=== PATIENT | female | born 1970 | race Caucasian/White ===

== ENCOUNTER 2024-08-18 13:21 | Observation (INO) | payer MEDICARE, OTHER ==
--- NOTE | 2024-08-18 13:33 | ED ---
Chest Pain HPI - General Source: patient, RN notes reviewed, old records reviewed Mode of arrival: ambulatory Limitations: no limitations <Susan Waddell - Last Filed: 08/18/24 13:32> <Rasheed Palomino - Last Filed: 08/18/24 15:31> - General Stated Complaint: Abn Labs Time Seen by Provider: 08/18/24 13:32 - History of Present Illness Initial Comments: Quick note: 54 old female presenting to the ER for evaluation of abnormal stress test. Patient underwent stress test yesterday that was ordered by PCP. Patient was informed last night she had an abnormal result and was instructed to come to the ER. Paperwork patient brought or showing exercise-induced ischemic changes. Patient states since yesterday she has had a heavy sensation to her chest along with shortness of breath. No known cardiac history. Patient also was endorsing a headache. (Susan Waddell) This is a 54-year-old female with a past medical history significant for diabetes patient states she recently had a stress test and stress test was positive so she got a phone call from her primary medical care doctor to come to the emergency department immediately. Patient states she has had some intermittent chest heaviness on the left side but she does not have any currently. Patient denies any shortness of breath. Patient Nuys any palpita tions. Patient Nuys any nausea vomiting or diaphoretic episode. Patient denies any recent fever chills or cough or patient has any swelling to the legs or calf tenderness. (Rasheed Palomino) - Related Data Allergies Allergy/AdvReac Type Severity Reaction Status Date / Time erythromycin base Allergy Rash/Hives Verified 08/18/24 13:35 Penicillins Allergy Rash/Hives Verified 08/18/24 13:33 Tetracyclines Allergy Rash/Hives Verified 08/18/24 13:33 Review of Systems ROS Other: All systems not noted in ROS Statement are negative. <Susan Waddell - Last Filed: 08/18/24 13:32> ROS Other: All systems not noted in ROS Statement are negative. <Rasheed Palomino - Last Filed: 08/18/24 15:31> ROS Statement: Those systems with pertinent positive or pertinent negative responses have been documented in the HPI. General Exam <Susan Waddell - Last Filed: 08/18/24 13:32> <Rasheed Palomino - Last Filed: 08/18/24 15:31> - General Exam Comments Initial Comments: Visual Physical Exam Vital signs reviewed General: Well-appearing, nontoxic, no acute distress. Head: Normocephalic, atraumatic Eyes: PERRLA, EOMI ENT: Airway patent Chest: Nonlabored breathing Skin: No visual rash, normal skin tone Neuro: Alert and oriented 3 Musculoskeletal: No gross abnormalities (Susan Waddell) GENERAL: Patient is well-developed and well-nourished. Patient is nontoxic and well- hydrated and is in mild distress. ENT: Neck is soft and supple. No significant lymphadenopathy is noted. Oropharynx is clear. Moist mucous membranes. Neck has full range of motion without eliciting any pain. EYES: The sclera were anicteric and conjunctiva were pink and moist. Extraocular movements were intact and pupils were equal round and reactive to light. Eyelids were unremarkable. PULMONARY: Unlabored respirations. Good breath sounds bilaterally. No audible rales rhonchi or wheezing was noted. CARDIOVASCULAR: There is a regular rate and rhythm without any murmurs gallops or rubs. ABDOMEN: Soft and nontender with normal bowel sounds. No palpable organomegaly was noted. There is no palpable pulsatile mass. SKIN: Skin is clear with no lesions or rashes and otherwise unremarkable. NEUROLOGIC: Patient is alert and oriented x3. Cranial nerves II through XII are grossly intact. Motor and sensory are also intact. Normal speech, volume and content. Symmetrical smile. MUSCULOSKELETAL: Normal extremities with adequate strength and full range of motion. LYMPHATICS: No significant lymphadenopathy is noted PSYCHIATRIC: Normal psychiatric evaluation. (Rasheed Palomino) Course Vital Signs 08/18/24 13:28 Temperature 98.5 F Pulse Rate 95 Respiratory 20 Rate Blood Pressure 186/82 O2 Sat by Pulse 99 Oximetry Chest Pain MDM <Susan Waddell - Last Filed: 08/18/24 13:32> <Rasheed Palomino - Last Filed: 08/18/24 15:31> - [facility] I performed the quick note portion of this chart. Electronically signed by Susan Waddell PA-C (Susan Waddell) EKG is interpreted by myself. EKG shows a sinus rhythm at 93 bpm IA interval 135 QRS of 74 QT interval 353 QTc is 404. Patient's EKG shows Q waves in leads III and aVF there is no ST segment elevation Was pt. sent in by a medical professional or institution (BELLA Jacobs, [employer], urgent care, hospital, or long term...) When possible be specific @ -No Did you speak to anyone other than the patient for history (EMS, parent, family, police, friend...)? What history was obtained from this source @ -No Did you review nursing and triage notes (agree or disagree)? Why? @ -I reviewed and agree with nursing and triage notes Were old charts reviewed (outside hosp., previous admission, EMS record, old EKG, old radiological studies, urgent care reports/EKG's, long term records)? Report findings @ -No old charts were reviewed Differential Diagnosis? @ -Differential Chest Pain: Stable Angina, Unstable Angina, STEMI, NSTEMI Aortic Dissection, Pneumothorax, Musculoskeletal, Esophageal Spasm GERD, Cholecystitis, Pancreatitis, Zoster, this is not meant to be an all-inclusive list. EKG interpreted by me (3pts min.). @ -As above X-rays interpreted by me (1pt min.). @ -Shows no acute CT interpreted by me (1pt min.). @ -None done U/S interpreted by me (1pt. min.). @ -None done What testing was considered but not performed or refused? (CT, X-rays, U/S, labs)? Why? @ -None What meds were considered but not given or refused? Why? @ -None Did you discuss the management of the patient with other professionals (professionals i.e. BELLA Jacobs, [employer], lab, RT, psych nurse, social worker school, custodial supervisor, teacher, chief risk officer, disease case manager rn)? Give summary @ -I spoke with [facility] hospitalist and they agreed to admit the patient admit the patient wrote admitting orders Was smoking cessation discussed for >3mins.? @ -No Was critical care preformed (if so, how long)? @ -No Were there social determinants of health that impacted care today? How? (Homelessness, low income, unemployed, alcoholism, drug addiction, transportation, low edu. Level, literacy, decrease access to med. care, [facility], rehab)? @ -No Was there de-escalation of care discussed even if they declined (Discuss DNR or withdrawal of care, Hospice)? DNR status @ -No What co-morbidities impacted this encounter? (DM, HTN, Smoking, COPD, CAD, Cancer, CVA, ARF, Chemo, Hep., AIDS, mental health diagnosis, sleep apnea, morbid obesity)? @ -None Was patient admitted / discharged? Hospital course, mention meds given and route, prescriptions, significant lab abnormalities, going to OR and other pertinent info. @ -Patient's lab work came back within normal range. Patient's x-ray showed no acute abnormality. Patient is not having chest pain currently. Patient will be admitted to the medical hospitalist with a consult to cardiology Undiagnosed new problem with uncertain prognosis? @ -No Drug Therapy requiring intensive monitoring for toxicity (Heparin, Nitro, Insulin, Cardizem)? @ -No Were any procedures done? @ -No Diagnosis/symptom? @ -Stress test abnormality Acute, or Chronic, or Acute on Chronic? @ -Acute Uncomplicated (without systemic symptoms) or Complicated (systemic symptoms)? @ -Complicated Side effects of treatment? @ -No Exacerbation, Progression, or Severe Exacerbation? @ -No Poses a threat to life or bodily function? How? (Chest pain, [place], [place], pneumonia, PE, COPD, DKA, ARF, appy, cholecystitis, CVA, Diverticulitis, Homicidal, Suicidal, threat to staff... and all critical care pts) @ -Yes this can be secondary to cardiac dysfunction and lead to endorgan dysfunction (Rasheed Palomino) Disposition <Susan Waddell - Last Filed: 08/18/24 13:32> Time of Disposition: 15:31 <Rasheed Palomino - Last Filed: 08/18/24 15:31> Clinical Impression: Abnormal stress test Disposition: ADMITTED IP TO THIS HOSP Referrals: Cindy Beverly MD [Primary Care Provider] - 1-2 days
[2024-08-18 14:54] LABS: Basophils # (A) 0.1 k/uL (0-0.2); Basophils % (A) 0 %; Eosinophils # (A) 0.1 k/uL (0-0.7); Eosinophils % (A) 1 %; HCT 48.2 % (34.0-46.0); Lymphocytes # (A) 2.3 k/uL (1.0-4.8); Lymphocytes % (A) 20 %; MCH 28.6 pg (25.0-35.0); MCHC 33.1 g/dL (31.0-37.0); MCV 86.6 fL (80.0-100.0); Mean Platelet Volume 7.7; Monocytes # (A) 0.4 k/uL (0-1.0); Monocytes % (A) 4 %; Neutrophils # (A) 8.2 k/uL (1.3-7.7); Neutrophils % (A) 73 %; Platelet Count 260 k/uL (150-450); RBC 5.57 m/uL (3.80-5.40); RDW 14.2 % (11.5-15.5); WBC 11.2 k/uL (3.8-10.6)
[2024-08-18 15:05] LABS: ALT 30 U/L (4-34); African American GFR (CKD) >90 (>60 ml/min/1.73 sqM); Albumin 4.3 g/dL (3.5-5.0); Anion Gap 7 mmol/L; Blood Urea Nitrogen 15 mg/dL (7-17); Calcium 9.1 mg/dL (8.4-10.2); Carbon Dioxide 28 mmol/L (22-30); Chloride 101 mmol/L (98-107); Glucose 214 mg/dL (74-99); Non-African American GFR(CKD) >90 (>60 ml/min/1.73 sqM); Sodium 136 mmol/L (137-145); Total Bilirubin 1.4 mg/dL (0.2-1.3); Total Protein 7.3 g/dL (6.3-8.2)
[2024-08-18 15:08] LABS: Partial Thromboplastin Time 24.8 sec (22.0-30.0); Prothrombin Time 11.1 sec (10.0-12.5)
[2024-08-18 15:20] LABS: AST 39 U/L (14-36); Alkaline Phosphatase 69 U/L (38-126); Magnesium 1.7 mg/dL (1.6-2.3); Potassium 3.8 mmol/L (3.5-5.1)
[2024-08-18] MEDS ORDERED: NITROGLYCERIN SL TABS 0.4 MG TAB SUBLINGUAL PRN (15:31)
[2024-08-18] MEDS: ASPIRIN 81 MG PO STA (15:32)
[2024-08-18] MEDS: NITROGLYCERIN OINT 1 INCH/GM PACKET TOPICAL STA (15:33)
--- NOTE | 2024-08-18 16:09 | XR ---
EXAMINATION TYPE: XR chest 2V DATE OF EXAM: 08/18/2024 4:02 PM COMPARISON: None CLINICAL INDICATION: Female, 54 years old with history of Chest Pain; TECHNIQUE: XR chest 2V Frontal and lateral views of the chest. FINDINGS: Lungs/Pleura: There is no evidence of pleural effusion, focal consolidation, or pneumothorax. Pulmonary vascularity: Unremarkable. Heart/mediastinum: Cardiomediastinal silhouette is unremarkable. Musculoskeletal: No acute osseous pathology. IMPRESSION: No acute cardiopulmonary disease/process. [facility], , 08/18/2024 4:07 PM
[2024-08-18] MEDS: NITROGLYCERIN OINT 1 INCH/GM PACKET TOPICAL SCH ×2 (17:52→21:40)
[2024-08-18 20:34] LABS: Glucose,Whole Blood 143 mg/dL (70-110)
[2024-08-18] MEDS ORDERED: DEXTROSE 50% SYRINGE 50 ML IVP PRN ×2 (20:53)
[2024-08-18] MEDS: INSULIN ASPART (NovoLOG) 100 UNIT/ML VIAL SQ SCH (21:21)
[2024-08-18] MEDS: ACETAMINOPHEN TAB 325 MG TAB PO PRN (21:36)
[2024-08-18] MEDS: FLUoxetine HCL 20 MG CAP PO SCH (21:36)
[2024-08-18] MEDS: buPROPion XL 300 MG TAB.ER.24H PO SCH (21:36)
[2024-08-19 05:57] LABS: Glucose,Whole Blood 161 mg/dL (70-110)
[2024-08-19] MEDS: PANTOPRAZOLE 40 MG TABLET PO SCH (06:28)
[2024-08-19] MEDS: LEVOTHYROXINE 137 MCG TAB PO SCH (06:28)
[2024-08-19] MEDS ORDERED: ASPIRIN 325 MG TAB PO SCH (09:00)
[2024-08-19] MEDS: LORATADINE 10 MG TAB PO SCH (09:02)
[2024-08-19] MEDS: VALSARTAN 80 MG TAB PO SCH (09:02)
[2024-08-19] MEDS: allopurinoL 300 MG TAB PO SCH (09:03)
[2024-08-19] MEDS: MONTELUKAST 10 MG TAB PO SCH (09:03)
[2024-08-19] MEDS: DAPAGLIFLOZIN PROPANEDIOL 5 MG TABLET PO SCH (09:03)
[2024-08-19 09:27] LABS: Chol/HDL Ratio 4.42 Ratio; LDL Cholesterol,Calculated 100.8 mg/dL (0.0-131.0)
[2024-08-19] MEDS: ASPIRIN 81 MG PO SCH (10:21)
[2024-08-19 11:58] LABS: Glucose,Whole Blood 145 mg/dL (70-110)
--- NOTE | 2024-08-19 12:57 | P.HPIM ---
History of Present Illness 54-year-old female was sent in here because of abnormal stress test still have to look at the report of the stress test. Patient was having occasional dizziness and shortness of breath after ambulation because of which stress test was obtained was also having some pressure-like chest pain and it occasionally. Patient's EKG did not show any acute ST-T wave changes except for mildly prolonged QT which is 483 QTc. Patient denies any present chest pain palpitations or shortness of breath. Patient has mild leukocytosis without any evidence of infection patient does have history of asthma sleep apnea with a CPAP machine at home. REVIEW OF SYSTEMS: All other systems are negative except those mentioned in the HPI PHYSICAL EXAMINATION: GENERAL: The patient is alert and oriented x3, not in any acute distress. Well developed, well nourished. HEENT: Pupils are round and equally reacting to light. EOMI. No scleral icterus. No conjunctival pallor. Normocephalic, atraumatic. No pharyngeal erythema. No thyromegaly. CARDIOVASCULAR: S1 and S2 present. No murmurs, rubs, or gallops. PULMONARY: Chest is clear to auscultation, no wheezing or crackles. ABDOMEN: Soft, nontender, nondistended, normoactive bowel sounds. No palpable organomegaly. MUSCULOSKELETAL: No joint swelling or deformity. EXTREMITIES: No cyanosis, clubbing, or pedal edema. NEUROLOGICAL: Gross neurological examination did not reveal any focal deficits. SKIN: No rashes. Assessment and plan -Abnormal stress test: Cardiology evaluated the patient further management depending on the recommendations -Type 2 diabetes mellitus -Sleep apnea -Obesity -Cough variant asthma without any acute exacerbation chronic intermittent cough -Hypothyroidism -Depression For above-mentioned medical problems patient was resumed on appropriate home medications DVT prophylaxis: Lovenox Past Medical History Past Medical History: Diabetes Mellitus History of Any Multi-Drug Resistant Organisms: None Reported Past Surgical History: Appendectomy, Cholecystectomy Past Anesthesia/Blood Transfusion Reactions: No Reported Reaction Past Psychological History: No Psychological Hx Reported Smoking Status: Never smoker Past Alcohol Use History: Occasional Past Drug Use History: None Reported Medications and Allergies Home Medications Medication Instructions Recorded Confirmed Type Empagliflozin [Jardiance] 10 mg PO DAILY 08/18/24 08/18/24 History FLUoxetine HCL [PROzac] 80 mg PO DAILY 08/18/24 08/18/24 History Levothyroxine Sodium [Synthroid] 137 mcg PO DAILY 08/18/24 08/18/24 History Loratadine [Claritin] 10 mg PO DAILY 08/18/24 08/18/24 History Montelukast [Singulair] 10 mg PO DAILY 08/18/24 08/18/24 History Omeprazole 20 mg PO DAILY 08/18/24 08/18/24 History Triamterene/Hydrochlorothiazid 1 tab PO DAILY 08/18/24 08/18/24 History [Triamterene-Hctz 37.5-25 mg Tb] allopurinoL [Zyloprim] 300 mg PO DAILY 08/18/24 08/18/24 History buPROPion XL [Wellbutrin XL] 300 mg PO DAILY 08/18/24 08/18/24 History metFORMIN HCL ER [Glucophage XR] 1,000 mg PO DAILY 08/18/24 08/18/24 History Allergies Allergy/AdvReac Type Severity Reaction Status Date / Time erythromycin base Allergy Rash/Hives Verified 08/18/24 15:50 Penicillins Allergy Rash/Hives Verified 08/18/24 15:50 Tetracyclines Allergy Rash/Hives Verified 08/18/24 15:50 Physical Exam Vitals: Vital Signs Temp Pulse Pulse Resp BP BP Pulse Ox 08/19/24 07:35 97.7 F 79 17 134/87 96 08/19/24 02:50 97.7 F 85 17 159/78 96 08/19/24 02:00 85 08/18/24 20:10 106 H 08/18/24 19:11 97.3 F L 106 H 18 165/93 92 L 08/18/24 17:39 99.1 F 76 19 127/76 96 08/18/24 13:28 98.5 F 95 20 186/82 99 Intake and Output 08/18/24 08/19/24 08/19/24 22:59 06:59 14:59 Other: Voiding Method Toilet # Voids 1 2 Weight 145.15 kg Results CBC & Chem 7: 08/18/24 14:25 08/18/24 14:25 Labs: Abnormal Lab Results - Last 24 Hours (Table) 08/18/24 08/18/24 08/18/24 Range/Units 14:25 14:25 14:25 WBC 11.2 H (3.8-10.6) k/uL RBC 5.57 H (3.80-5.40) m/uL Hct 48.2 H (34.0-46.0) % Neutrophils # 8.2 H (1.3-7.7) k/uL Sodium 136 L (137-145) mmol/L Glucose 214 H (74-99) mg/dL POC Glucose (mg/dL) (70-110) mg/dL Hemoglobin A1c 8.0 H (<=6.0) % Total Bilirubin 1.4 H (0.2-1.3) mg/dL AST 39 H (14-36) U/L Triglycerides (0.00-149.00) mg/dL VLDL Cholesterol, Calc (5.00-40.00) mg/dL 08/18/24 08/18/24 08/19/24 Range/Units 14:25 20:33 05:56 WBC (3.8-10.6) k/uL RBC (3.80-5.40) m/uL Hct (34.0-46.0) % Neutrophils # (1.3-7.7) k/uL Sodium (137-145) mmol/L Glucose (74-99) mg/dL POC Glucose (mg/dL) 143 H 161 H (70-110) mg/dL Hemoglobin A1c (<=6.0) % Total Bilirubin (0.2-1.3) mg/dL AST (14-36) U/L Triglycerides 258.00 H (0.00-149.00) mg/dL VLDL Cholesterol, Calc 51.60 H (5.00-40.00) mg/dL 08/19/24 Range/Units 11:57 WBC (3.8-10.6) k/uL RBC (3.80-5.40) m/uL Hct (34.0-46.0) % Neutrophils # (1.3-7.7) k/uL Sodium (137-145) mmol/L Glucose (74-99) mg/dL POC Glucose (mg/dL) 145 H (70-110) mg/dL Hemoglobin A1c (<=6.0) % Total Bilirubin (0.2-1.3) mg/dL AST (14-36) U/L Triglycerides (0.00-149.00) mg/dL VLDL Cholesterol, Calc (5.00-40.00) mg/dL Thrombosis Risk Factor Assmnt - Choose All That Apply Any of the Below Risk Factors Present?: Yes Each Factor Represents 1 point: Age 41-60 years, Obesity (BMI >25) Other Risk Factors: No Other congenital or acquired thrombophilia - If yes, enter type in comment: No Thrombosis Risk Factor Assessment Total Risk Factor Score: 2 Thrombosis Risk Factor Assessment Level: Low Risk
[2024-08-19 13:14] LABS: Chol/HDL Ratio 4.14 Ratio; LDL Cholesterol,Calculated 93.9 mg/dL (0.0-131.0)
--- NOTE | 2024-08-19 14:19 | P.CRDCN ---
History of Present Illness Consult date: 08/19/24 Consult reason: chest pain History of present illness: The patient is a 54-year-old female who had been experiencing exertional shortness of breath and intermittent chest pains over the last several months. She states she was under increased stress caring for both her mother and her brother and reported this information to her primary care provider Dr. Beverly. She underwent stress testing earlier this week at [facility]. She received a phone call later that day, where her PCP instructed her to proceed to the local emergency room as her testing was abnormal. Patient declined to proceed on , however when she developed worsening chest pressure yesterday she decided to come in. DIAGNOSTICS: EKG shows sinus mechanism with nonspecific changes Chest x-ray shows no acute cardiopulmonary process Lab data: WBC 11.2, hemoglobin 16.0, hematocrit 48.2, platelet 260, sodium 136, potassium 3.8, BUN 15, creatinine 0.56, hemoglobin A1c is 8, magnesium 1.7, AST 39, ALT 30, troponin less than 0.012, triglycerides 194, LDL 93, HDL 42 and TSH 1.7 REVIEW OF SYSTEMS: No fever or chills. No cough or expectoration. No diaph oresis. Patient denies headache, dizziness, blurred vision, double vision. Patient denies any stomach discomfort. No nausea, vomiting. No hematochezia. No hematemesis. Denies any black stools or blood in his stools. Denies dysuria or hematuria. No muscle weakness or numbness. Currently no discomfort at rest. No difficulty breathing supine. PHYSICAL EXAMINATION: This is a 54-year-old female in no apparent distress at the time of my examination. HEENT: Head is atraumatic, normocephalic. Pupils are equal, round. Sclerae anicteric. Conjunctivae are clear. Mucous membranes of the mouth are moist. Neck is supple. There is no jugular venous distention. No carotid bruit is heard. CHEST EXAMINATION: Lungs are clear to auscultation. No chest wall tenderness is noted on palpation or with deep breathing. HEART EXAMINATION: Heart regular rate and rhythm. S1, S2 heard. No murmurs, gallops or rub. ABDOMEN: Soft, nontender. Bowel sounds are heard. No organomegaly noted. EXTREMITIES: 2+ peripheral pulses with no evidence of peripheral edema and no calf tenderness noted. NEUROLOGIC EXAMINATION: Patient is awake, alert and oriented x3. FINAL ASSESSMENT AND PLAN: Angina Recent abnormal stress testing Obesity, BMI 51 Type 2 diabetes, uncontrolled Dyslipidemia Hypertension History of sleep apnea, compliant with CPAP PLAN: Start valsartan for blood pressure control Start low-dose aspirin and statin therapy Attempt to obtain copy of stress testing Consider coronary angiogram on Wednesday Further recommendations to be based upon clinical course I am dictating on behalf of Dr Navdeep Hernandez's history/physical and assessment/plan. Past Medical History Past Medical History: Diabetes Mellitus History of Any Multi-Drug Resistant Organisms: None Reported Past Surgical History: Appendectomy, Cholecystectomy Past Anesthesia/Blood Transfusion Reactions: No Reported Reaction Past Psychological History: No Psychological Hx Reported Smoking Status: Never smoker Past Alcohol Use History: Occasional Past Drug Use History: None Reported Medications and Allergies Home Medications Medication Instructions Recorded Confirmed Type Empagliflozin [Jardiance] 10 mg PO DAILY 08/18/24 08/18/24 History FLUoxetine HCL [PROzac] 80 mg PO DAILY 08/18/24 08/18/24 History Levothyroxine Sodium [Synthroid] 137 mcg PO DAILY 08/18/24 08/18/24 History Loratadine [Claritin] 10 mg PO DAILY 08/18/24 08/18/24 History Montelukast [Singulair] 10 mg PO DAILY 08/18/24 08/18/24 History Omeprazole 20 mg PO DAILY 08/18/24 08/18/24 History Triamterene/Hydrochlorothiazid 1 tab PO DAILY 08/18/24 08/18/24 History [Triamterene-Hctz 37.5-25 mg Tb] allopurinoL [Zyloprim] 300 mg PO DAILY 08/18/24 08/18/24 History buPROPion XL [Wellbutrin XL] 300 mg PO DAILY 08/18/24 08/18/24 History metFORMIN HCL ER [Glucophage XR] 1,000 mg PO DAILY 08/18/24 08/18/24 History Allergies Allergy/AdvReac Type Severity Reaction Status Date / Time erythromycin base Allergy Rash/Hives Verified 08/18/24 15:50 Penicillins Allergy Rash/Hives Verified 08/18/24 15:50 Tetracyclines Allergy Rash/Hives Verified 08/18/24 15:50 Physical Exam Vitals: Vital Signs Temp Pulse Pulse Resp BP BP Pulse Ox 08/19/24 02:50 97.7 F 85 17 159/78 96 08/19/24 02:00 85 08/18/24 20:10 106 H 08/18/24 19:11 97.3 F L 106 H 18 165/93 92 L 08/18/24 17:39 99.1 F 76 19 127/76 96 08/18/24 13:28 98.5 F 95 20 186/82 99 Intake and Output 08/18/24 08/19/24 08/19/24 22:59 06:59 14:59 Other: Voiding Method Toilet # Voids 1 2 Weight 145.15 kg Results 08/18/24 14:25 08/18/24 14:25 Cardiac Enzymes 08/18/24 08/18/24 08/18/24 Range/Units 14:25 14:25 17:17 AST 39 H (14-36) U/L Troponin I <0.012 <0.012 (0.000-0.034) ng/mL 08/18/24 Range/Units 20:24 AST (14-36) U/L Troponin I <0.012 (0.000-0.034) ng/mL Coagulation 08/18/24 Range/Units 14:25 PT 11.1 (10.0-12.5) sec APTT 24.8 (22.0-30.0) sec CBC 08/18/24 Range/Units 14:25 WBC 11.2 H (3.8-10.6) k/uL RBC 5.57 H (3.80-5.40) m/uL Hgb 16.0 (11.4-16.0) gm/dL Hct 48.2 H (34.0-46.0) % Plt Count 260 (150-450) k/uL Comprehensive Metabolic Panel 08/18/24 Range/Units 14:25 Sodium 136 L (137-145) mmol/L Potassium 3.8 (3.5-5.1) mmol/L Chloride 101 (98-107) mmol/L Carbon Dioxide 28 (22-30) mmol/L BUN 15 (7-17) mg/dL Creatinine 0.56 (0.52-1.04) mg/dL Glucose 214 H (74-99) mg/dL Calcium 9.1 (8.4-10.2) mg/dL AST 39 H (14-36) U/L ALT 30 (4-34) U/L Alkaline Phosphatase 69 (38-126) U/L Total Protein 7.3 (6.3-8.2) g/dL Albumin 4.3 (3.5-5.0) g/dL Current Medications Generic Name Dose Route Start Last Admin Trade Name Freq PRN Reason Stop Dose Admin Acetaminophen 650 mg 08/18/24 21:26 08/18/24 21:36 Acetaminophen Tab 325 Mg Tab PO 650 mg Q6HR PRN Administration Fever and/ or Pain Allopurinol 300 mg 08/19/24 09:00 Allopurinol 300 Mg Tab PO DAILY [facility] Aspirin 325 mg 08/19/24 09:00 Aspirin 325 Mg Tab PO DAILY [facility] Bupropion HCl 300 mg 08/18/24 20:53 08/18/24 21:36 Bupropion Xl 300 Mg Tab.Er.24h PO 300 mg DAILY [facility] Administration Dapagliflozin 5 mg 08/19/24 09:00 Dapagliflozin Propanediol 5 Mg Tablet PO DAILY [facility] Dextrose/Water 25 ml 08/18/24 20:53 Dextrose 50% Syringe 50 Ml IVP PER PROTOCOL PRN Hypoglycemia Protocol Dextrose/Water 50 ml 08/18/24 20:53 Dextrose 50% Syringe 50 Ml IVP PER PROTOCOL PRN Hypoglycemia Protocol Fluoxetine HCl 80 mg 08/18/24 20:52 08/18/24 21:36 Fluoxetine Hcl 20 Mg Cap PO 80 mg DAILY [facility] Administration Insulin Aspart 0 unit 08/18/24 21:00 08/19/24 06:21 Insulin Aspart (Novolog) 100 Unit/Ml Vial SQ Not Given ACHS [facility] Protocol Levothyroxine Sodium 137 mcg 08/19/24 06:30 08/19/24 06:28 Levothyroxine 137 Mcg Tab PO 137 mcg DAILY@0630 [facility] Administration Loratadine 10 mg 08/19/24 09:00 Loratadine 10 Mg Tab PO DAILY [facility] Montelukast Sodium 10 mg 08/19/24 09:00 Montelukast 10 Mg Tab PO DAILY [facility] Nitroglycerin 0.4 mg 08/18/24 15:31 Nitroglycerin Sl Tabs 0.4 Mg Tab SUBLINGUAL Q5M PRN Chest Pain Nitroglycerin 1 inch 08/18/24 21:30 08/19/24 06:29 Nitroglycerin Oint 1 Inch/Gm Packet TOPICAL Not Given Q6HR [facility] Pantoprazole Sodium 40 mg 08/19/24 07:30 08/19/24 06:28 Pantoprazole 40 Mg Tablet PO 40 mg [id number] [facility] Administration Intake and Output 08/18/24 08/19/24 08/19/24 22:59 06:59 14:59 Other: Voiding Method Toilet # Voids 1 2 Weight 145.15 kg 08/18/24 14:25 08/18/24 14:25
--- NOTE | 2024-08-19 14:35 | CA ---
Transthoracic Echo Report Name: Brenda Alexandra Age: 54 Gender: F : 1970 Exam Date: 08/19/2024 10:30 Exam Location: [facility] Ht (in): 66 Wt (lb): 320 Ordering Physician: Katy Medina Attending/Referring Phys: [id number], Carol Disease Education Specialist Caro Daugherty RDCS Procedure CPT: Indications: abnormal stress test, angina Cardiac Hx: Technical Quality: Technically difficult study Contrast 1: Definity Total Dose (mL): 1 Contrast 2: Total Dose (mL): MEASUREMENTS (Male / Female) Normal Values 2D ECHO LV Diastolic Diameter PLAX 3.9 cm 4.2 - 5.9 / 3.9 - 5.3 cm LV Systolic Diameter PLAX 2.8 cm IVS Diastolic Thickness 1.0 cm 0.6 - 1.0 / 0.6 - 0.9 cm LVPW Diastolic Thickness 1.2 cm 0.6 - 1.0 / 0.6 - 0.9 cm LV Relative Wall Thickness 0.6 LVOT Diameter 2.2 cm LV Diastolic Volume MOD BP 103.8 cm??? 67 - 155 / 56 - 104 cm??? LV Systolic Volume MOD BP 42.8 cm??? 22 - 58 / 19 - 49 cm??? LV Ejection Fraction MOD BP 58.8 % >= 55 % LV Cardiac Index MOD BP 1747.1 cm???/min???m??? LV Diastolic Volume MOD 4C 109.9 cm??? LV Systolic Volume MOD 4C 47.0 cm??? LV Ejection Fraction MOD 4C 57.2 % LV Cardiac Index MOD 4C 1801.2 cm???/min???m??? LV Diastolic Length 4C 8.3 cm LV Systolic Length 4C 7.2 cm LV Diastolic Volume MOD 2C 97.3 cm??? LV Systolic Volume MOD 2C 38.6 cm??? LV Ejection Fraction MOD 2C 60.4 % LV Cardiac Index MOD 2C 1683.7 cm???/min???m??? LV Diastolic Length 2C 8.3 cm LV Systolic Length 2C 7.1 cm LA Volume 46.2 cm??? 18 - 58 / 22 - 52 cm??? LA Volume Index 17.2 cm???/m??? 16 - 28 cm???/m??? Ascending Aorta Diameter 3.2 cm DOPPLER AV Peak Velocity 148.6 cm/s AV Peak Gradient 8.8 mmHg AV Mean Velocity 104.1 cm/s AV Mean Gradient 4.8 mmHg AV Velocity Time Integral 29.1 cm LVOT Peak Velocity 112.2 cm/s LVOT Peak Gradient 5.0 mmHg LVOT Velocity Time Integral 22.5 cm LVOT Stroke Volume 84.4 cm??? LVOT Stroke Volume Index 34.6 ml/m??? LVOT Cardiac Index 2418.1 cm???/min???m??? AV Area Cont Eq vti 2.9 cm??? AV Area Cont Eq pk 2.8 cm??? MV Area PHT 3.5 cm??? Mitral E Point Velocity 95.4 cm/s Mitral A Point Velocity 78.0 cm/s Mitral E to A Ratio 1.2 MV Deceleration Time 213.7 ms FINDINGS Left Ventricle Left ventricular ejection fraction is estimated at 55-60 %. Mildly increased septal wall thickness. Mildly increased posterior wall thickness. Left ventricular cavity size normal. No obvious regional wall motion abnormalities. Right Ventricle Right ventricle not well visualized. Unable to estimate the right ventricular systolic pressure. Right Atrium Normal right atrial size. Left Atrium Normal left atrial size. Mitral Valve Structurally normal mitral valve. No mitral stenosis, regurgitation or prolapse. Aortic Valve Aortic valve not well visualized. No aortic valve stenosis or regurgitation. Tricuspid Valve Structurally normal tricuspid valve. No tricuspid stenosis. No tricuspid regurgitation. Pulmonic Valve Pulmonic valve not well visualized. No pulmonic stenosis. No pulmonic regurgitation. Pericardium No pericardial effusion. Aorta Normal size aortic root and proximal ascending aorta. CONCLUSIONS Diagnosis chest discomfort, abnormal stress test LVH with preserved systolic function ejection fraction greater than 55% No significant valvular abnormalities Previewed by: Dr. Navdeep Hernandez MD (Electronically Signed) Final Date: 19 August 2024 14:34
[2024-08-19] MEDS: MAGNESIUM SULFATE-D5W PMX 1 GM in DEXTROSE/WATER 1 100ML.BAG IVPB ONE (15:33)
[2024-08-19 17:26] LABS: Glucose,Whole Blood 149 mg/dL (70-110)
[2024-08-19 20:37] LABS: Glucose,Whole Blood 149 mg/dL (70-110)
[2024-08-19] MEDS: ATORVASTATIN 40 MG TAB PO SCH (21:44)
[2024-08-20 06:03] LABS: Glucose,Whole Blood 198 mg/dL (70-110)
[2024-08-20] MEDS ORDERED: ALPRAZolam 0.5 MG TAB PO PRN (08:52)
[2024-08-20] MEDS ORDERED: ALPRAZolam 0.25 MG TAB PO PRN (08:52)
[2024-08-20] MEDS ORDERED: NITROGLYCERIN SL TABS 0.4 MG TAB SUBLINGUAL PRN (08:52)
[2024-08-20 09:51] LABS: Basophils # (A) 0.04 X 10*3/uL (0.00-0.10); Basophils % (A) 0.4 %; HCT 47.4 % (37.2-46.3); Lymphocytes # (A) 2.22 X 10*3/uL (0.90-5.00); Lymphocytes % (A) 21.4 %; MCH 28.1 pg (27.0-32.0); MCHC 31.6 g/dL (32.0-37.0); MCV 88.8 FL (80.0-97.0); Mean Platelet Volume 10.5 FL (9.5-12.2); Monocytes # (A) 0.65 X 10*3/uL (0.20-1.00); Monocytes % (A) 6.3 %; NRBC Per 100 WBC 0 X 10*3/uL (0.00-0.01); Neutrophils # (A) 7.33 X 10*3/uL (1.80-7.70); Neutrophils % (A) 70.5 %; Platelet Count 240 X 10*3/uL (140-440); RBC 5.34 X 10*6/uL (4.10-5.20); RDW 14.2 % (11.5-14.5); WBC 10.38 X 10*3/uL (4.50-10.00)
[2024-08-20 10:01] LABS: BUN/Creat Ratio 17.33 Ratio (12.00-20.00); Blood Urea Nitrogen 10.4 mg/dL (9.0-27.0); Calcium 8.8 mg/dL (8.7-10.3); Chloride 98 mmol/L (96-109); Glucose 181 mg/dL (70-110); Potassium 3.7 mmol/L (3.5-5.5); Sodium 139 mmol/L (135-145)
[2024-08-20 12:29] LABS: Glucose,Whole Blood 164 mg/dL (70-110)
--- NOTE | 2024-08-20 13:25 | P.PN ---
Subjective Progress Note Date: 08/20/24 This is Joseph Patterson NP, I'm dictating on behalf of Dr. Hernandez's H&P and A&P. Patient was interviewed and examined. Patient is a pleasant 54-year-old female who presented to the hospital with complaints of exertional shortness of breath and intermittent chest pains over the last few months, who had a recent stress test earlier this week which was grossly positive for ischemia. Patient today reports that she is doing okay. She is denying chest pain, heart palpitations, nausea, vomiting, shortness of breath. Due to her symptoms and positive stress test, the patient had will be scheduled for a cardiac catheterization tomorrow. GENERAL: Well-appearing, well-nourished and in no acute distress. NECK: Supple without JVD or thyromegaly. LUNGS: Breath sounds clear to auscultation bilaterally. Respiration equal and unlabored. No wheezes, rales or rhonchi. HEART: Regular rate and rhythm without murmurs, rubs or gallops. S1 and S2 heard. EXTREMITIES: Normal range of motion, no edema. No clubbing or cyanosis. Peripheral pulses intact and strong. VITALS: Temp 97.5, pulse 79, respirations 17, blood pressure 123/63, O2 saturation 96% on room air TELEMETRY: Sinus mechanism LABS: White count 10.3, hemoglobin 15, platelets 240, sodium 139, potassium 3.7, BUN 10.4, creatinine 0.6, calcium 8.8, triglycerides 194, cholesterol 175, LDL 93.9, HDL 42.3, TSH 1.71 IMPRESSION: 1. Angina 2. Recent abnormal stress testing 3. Obesity, BMI 51 4. Type 2 diabetes, uncontrolled 5. Dyslipidemia 6. Hypertension 7. History of sleep apnea, compliant with CPAP. PLAN: Continue valsartan. Continue aspirin and statin. Cardiac catheterization tomorrow with Dr. Fritz. Further recommendations based on patient's clinical course. Objective - Vital Signs Vital signs: Vital Signs Temp 97.5 F L 08/20/24 07:35 Pulse 79 08/20/24 07:35 Resp 17 08/20/24 07:35 BP 123/63 08/20/24 07:35 Pulse Ox 96 08/20/24 07:35 FiO2 Intake & Output 08/19/24 08/20/24 08/20/24 18:59 06:59 18:59 Intake Total 468 118 Balance 468 118 Intake: Oral 468 118 Other: # Voids 2 2 - Labs CBC & Chem 7: 08/20/24 06:38 08/20/24 06:38 Labs: Abnormal Lab Results - Last 24 Hours (Table) 08/19/24 08/19/24 08/20/24 Range/Units 17:24 20:36 06:01 WBC (4.50-10.00) X 10*3/uL RBC (4.10-5.20) X 10*6/uL Hct (37.2-46.3) % MCHC (32.0-37.0) g/dL Glucose (70-110) mg/dL POC Glucose (mg/dL) 149 H 149 H 198 H (70-110) mg/dL 08/20/24 08/20/24 08/20/24 Range/Units 06:38 06:38 12:28 WBC 10.38 H (4.50-10.00) X 10*3/uL RBC 5.34 H (4.10-5.20) X 10*6/uL Hct 47.4 H (37.2-46.3) % MCHC 31.6 L (32.0-37.0) g/dL Glucose 181 H (70-110) mg/dL POC Glucose (mg/dL) 164 H (70-110) mg/dL
[2024-08-20 17:23] LABS: Glucose,Whole Blood 179 mg/dL (70-110)
[2024-08-20 20:06] LABS: Glucose,Whole Blood 152 mg/dL (70-110)
--- NOTE | 2024-08-20 20:20 | P.PN ---
Subjective Progress Note Date: 08/20/24 54-year-old female was sent in here because of abnormal stress test still have to look at the report of the stress test. Patient was having occasional dizziness and shortness of breath after ambulation because of which stress test was obtained was also having some pressure-like chest pain and it occasionally. Patient's EKG did not show any acute ST-T wave changes except for mildly prolonged QT which is 483 QTc. Patient denies any present chest pain palpitations or shortness of breath. Patient has mild leukocytosis without any evidence of infection patient does have history of asthma sleep apnea with a CPAP machine at home. 08/20/2024 Patient evaluated today resting in bed comfortably on the BiPAP. Patient will be going for cardiac catheterization tomorrow. Stress report from outside hospital completed on 08/17/2024 reveals large stress-induced ischemic change suspected along the anterior and anterior lateral mendez. Echocardiogram reveals and EF of 55 to 60% with no significant valvular abnormalities. Review of Systems Constitutional: Denied any fatigue denied any fever. Cardio vascular: denied any chest pain, palpitations Gastrointestinal: denied any nausea, vomiting, diarrhea Pulmonary: Denied any shortness of breath cough Neurologic denied any new focal deficits All inpatient medications were reviewed and appropriate changes in these medications as dictated in the interval history and assessment and plan. PHYSICAL EXAMINATION: GENERAL: The patient is alert and oriented x3, not in any acute distress. Well developed, well nourished. HEENT: Pupils are round and equally reacting to light. EOMI. No scleral icterus. No conjunctival pallor. Normocephalic, atraumatic. No pharyngeal erythema. No thyromegaly. CARDIOVASCULAR: S1 and S2 present. No murmurs, rubs, or gallops. PULMONARY: Chest is clear to auscultation, no wheezing or crackles. ABDOMEN: Soft, nontender, nondistended, normoactive bowel sounds. No palpable organomegaly. MUSCULOSKELETAL: No joint swelling or deformity. EXTREMITIES: No cyanosis, clubbing, or pedal edema. NEUROLOGICAL: Gross neurological examination did not reveal any focal deficits. SKIN: No rashes. Assessment and plan -Abnormal stress test: Cardiology evaluated the patient further management dep ending on the recommendations -Type 2 diabetes mellitus -Sleep apnea -Obesity - asthma without any acute exacerbation chronic intermittent cough -Hypothyroidism -Depression For above-mentioned medical problems patient was resumed on appropriate home medications DVT prophylaxis: Heyidnox The impression and plan of care has been dictated by Candace Ruffin, Nurse Practitioner as directed. Dr. Wendy MD I have performed a history and physical examination and medical decision making of this patient, discussed the same with the dictator, and agree with the dictators assessment and plan as written, documented as a scribe. Based on total visit time, I have performed more than 50% of this visit. Objective - Vital Signs Vital signs: Vital Signs Temp 97.5 F L 08/20/24 07:35 Pulse 79 08/20/24 07:35 Resp 17 08/20/24 07:35 BP 123/63 08/20/24 07:35 Pulse Ox 96 08/20/24 07:35 FiO2 Intake & Output 08/19/24 08/20/24 08/20/24 18:59 06:59 18:59 Intake Total 468 Balance 468 Intake: Oral 468 Other: # Voids 2 2 - Labs CBC & Chem 7: 08/20/24 06:38 08/20/24 06:38 Labs: Abnormal Lab Results - Last 24 Hours (Table) 08/19/24 08/19/24 08/19/24 Range/Units 08:41 08:41 11:57 WBC (4.50-10.00) X 10*3/uL RBC (4.10-5.20) X 10*6/uL Hct (37.2-46.3) % MCHC (32.0-37.0) g/dL POC Glucose (mg/dL) 145 H (70-110) mg/dL Hemoglobin A1c 8.0 H (<=6.0) % Triglycerides 194.00 H (0.00-149.00) mg/dL 08/19/24 08/19/24 08/20/24 Range/Units 17:24 20:36 06:01 WBC (4.50-10.00) X 10*3/uL RBC (4.10-5.20) X 10*6/uL Hct (37.2-46.3) % MCHC (32.0-37.0) g/dL POC Glucose (mg/dL) 149 H 149 H 198 H (70-110) mg/dL Hemoglobin A1c (<=6.0) % Triglycerides (0.00-149.00) mg/dL 08/20/24 Range/Units 06:38 WBC 10.38 H (4.50-10.00) X 10*3/uL RBC 5.34 H (4.10-5.20) X 10*6/uL Hct 47.4 H (37.2-46.3) % MCHC 31.6 L (32.0-37.0) g/dL POC Glucose (mg/dL) (70-110) mg/dL Hemoglobin A1c (<=6.0) % Triglycerides (0.00-149.00) mg/dL Assessment and Plan Time with Patient: Less than 30
[2024-08-21 01:54] VITALS: RESP 16
[2024-08-21 06:02] LABS: Glucose,Whole Blood 152 mg/dL (70-110)
[2024-08-21] MEDS: ATORVASTATIN 80 MG TAB PO ONE (06:08)
[2024-08-21] MEDS: ASPIRIN 325 MG TAB PO ONE (06:08)
[2024-08-21] MEDS ORDERED: HEPARIN SODIUM,PORCINE (1 ML) 2,500 UNIT in SODIUM CHLORIDE 0.9% 250 ML IRRIGATION PRN (07:00)
[2024-08-21] MEDS ORDERED: HEPARIN SODIUM,PORCINE 10,000 UNIT in SODIUM CHLORIDE 0.9% 1,000 ML IRRIGATION PRN (07:00)
[2024-08-21] MEDS: SODIUM CHLORIDE 0.9% 1,000 ML IV ONE ×2 (09:28→09:44)
[2024-08-21] MEDS: HEPARIN SODIUM,PORCINE 10,000 UNIT in SODIUM CHLORIDE 0.9% 1,000 ML IRRIGATION ONE (09:44)
[2024-08-21] MEDS: HEPARIN SODIUM,PORCINE (1 ML) 2,500 UNIT in SODIUM CHLORIDE 0.9% 250 ML IRRIGATION ONE (09:45)
[2024-08-21] MEDS: MIDAZOLAM 2 MG/2 ML VIAL IVP ONE (09:46)
[2024-08-21] MEDS: LIDOCAINE 1% INJ 10MG/ML (20 ML MDV) SQ ONE (09:47)
[2024-08-21] MEDS: fentaNYL (PF) 50 MCG/ML 2 ML AMP IVP ONE (09:48)
[2024-08-21] MEDS: VERAPAMIL SYRINGE (5 MG/10 ML) INTRAARTER ONE (09:49)
[2024-08-21] MEDS: IOPAMIDOL-370 100ML BTL INJ ONE (10:00)
[2024-08-21 10:31] VITALS: TEMP 97.8
[2024-08-21] MEDS ORDERED: RX INFO: IV CONTRAST WAS GIVEN 1 EACH MISC MISCELLANE PRN (10:39)
[2024-08-21] MEDS: SODIUM CHLORIDE 0.9% 1,000 ML IV SCH (10:45)
--- NOTE | 2024-08-21 10:57 | CC ---
CARDIAC CATHETERIZATION REPORT INDICATION: Chest pain with abnormal stress test showing ischemia in LAD distribution. PROCEDURE NOTE: After obtaining informed consent, left heart catheterization and coronary angiogram were performed via the right radial artery using standard Alan catheters. The patient tolerated the procedure well without any obvious immediate complications. A TR band will be used for hemostasis. Total sedation time was 10 minutes. Right radial artery access was obtained using Seldinger technique, a 6-Slovak sheath was placed. Catheters and wires were floated into the ascending aorta under fluoroscopic guidance. The patient received verapamil and heparin per protocol. FINDINGS: 1. Hemodynamics: Left ventricular end-diastolic pressure is 11 mmHg. There is no significant gradient across the aortic valve. 2. Left ventriculogram: Left ventriculogram is not performed. 3. Angiographic Data: a.Right coronary artery: Right coronary artery is a large dominant vessel and is free of stenosis. b.Left main coronary artery is a short vessel and is free of disease, divides into left anterior descending coronary artery and circumflex coronary artery. c.Circumflex coronary artery and its branches are free of significant stenosis. d.Left anterior descending coronary artery has a sluggish flow in the mid to distal area, but there are no focal stenotic lesions noted. CONCLUSIONS: 1. No significant obstructive disease noted. 2. Probably a false-positive stress test. 3. Sluggish flow in the mid to distal LAD. We will treat the patient with nitrates and see if her symptoms improve. NICKY / ASCENCION: [id number] /
--- NOTE | 2024-08-21 11:03 | LTR ---
Dear Cindy, I performed cardiac catheterization on Brenda Alexandra. A detail catheterization note is enclosed for your records. In brief, the cardiac catheterization did not reveal significant focal obstructive disease to explain her abnormal stress test. Stress test is probably a false-positive stress test. She, however, has sluggish flow in the mid to distal LAD, maybe there is a component of a spasm. We will try her on nitrates and see if that helps her with the symptoms. Thank you for giving me the privilege to participate in the care of this pleasant lady. MMRHIANNON / ASHELYN: [id number] /
[2024-08-21 11:58] LABS: Glucose,Whole Blood 195 mg/dL (70-110)
[2024-08-21 14:56] VITALS: BP 107/65; PULSE 77
[2024-08-22] MEDS ORDERED: ISOSORBIDE MONONITRATE ER 30 MG TAB.ER.24H PO SCH (09:00)
--- NOTE | 2024-08-24 16:25 | P.DS ---
Providers Date of admission: 08/18/24 15:50 Attending physician: Je Luna Consults: 08/18/24 15:31 Consult Physician Urgent Consulting Provider: [facility] Consult Reason/Comments: Abnormal stress test Do you want consulting provider notified?: Yes Primary care physician: Cindy Beverly [facility] Course: Date of service 08/21/2024 Final Diagnosis -Abnormal stress test: likely false positive and cardiac catheterization reveals no focal obstructive disease to explain the abnormal stress test. Possible spasm of the LAD. -Type 2 diabetes mellitus -Sleep apnea -Obesity - asthma without any acute exacerbation chronic intermittent cough -Hypothyroidism -Depression Discharge Disposition Patient is stable for discharge home. Patient to follow up with cardiology in the office in 1 to 2 weeks. Patient to follow up with her PCP in 1 to 2 days. She has requested information about diet classes and has been given the information to the bariatric center at [facility] and additionally dr. alvarez information. Hospital Course 54-year-old female was sent in here because of abnormal stress test still have to look at the report of the stress test. Patient was having occasional dizziness and shortness of breath after ambulation because of which stress test was obtained was also having some pressure-like chest pain and it occasionally. Patient's EKG did not show any acute ST-T wave changes except for mildly prolonged QT which is 483 QTc. Patient denies any present chest pain palpitations or shortness of breath. Patient has mild leukocytosis without any evidence of infection patient does have history of asthma sleep apnea with a CPAP machine at home. Was admitted to the hospital with cardiac consultation and recommending cardiac catheterization. The cath reveals no significant focal obstructive disease although there was sluggish flow mid to distal LAD. Patient was started on nitrate therapy. She is currently chest pain free and will be discharged home. Please see medication reconciliation for a list of current medications. Thank you for allowing us to participate in the care of this patient. The impression and plan of care has been dictated by Candace Ruffin, Nurse Practitioner as directed. Dr. Wendy MD I have performed a history and physical examination and medical decision making of this patient, discussed the same with the dictator, and agree with the dictators assessment and plan as written, documented as a scribe. Based on total visit time, I have performed more than 50% of this visit. Patient Condition at Discharge: Good Plan - Discharge Summary Discharge Rx Participant: No New Discharge Prescriptions: New Valsartan [Diovan] 80 mg PO BID #60 tab Isosorbide Mononitrate ER [Imdur] 30 mg PO DAILY #30 tab Aspirin 81 mg PO DAILY #30 tab Atorvastatin [Lipitor] 40 mg PO HS #30 tab Continue allopurinoL [Zyloprim] 300 mg PO DAILY metFORMIN HCL ER [Glucophage XR] 1,000 mg PO DAILY Loratadine [Claritin] 10 mg PO DAILY Omeprazole 20 mg PO DAILY Montelukast [Singulair] 10 mg PO DAILY FLUoxetine HCL [PROzac] 80 mg PO DAILY Empagliflozin [Jardiance] 10 mg PO DAILY Levothyroxine Sodium [Synthroid] 137 mcg PO DAILY buPROPion XL [Wellbutrin XL] 300 mg PO DAILY Discontinued Triamterene/Hydrochlorothiazid [Triamterene-Hctz 37.5-25 mg Tb] 1 tab PO DAILY Discharge Medication List Empagliflozin [Jardiance] 10 mg PO DAILY 08/18/24 [History] FLUoxetine HCL [PROzac] 80 mg PO DAILY 08/18/24 [History] Levothyroxine Sodium [Synthroid] 137 mcg PO DAILY 08/18/24 [History] Loratadine [Claritin] 10 mg PO DAILY 08/18/24 [History] Montelukast [Singulair] 10 mg PO DAILY 08/18/24 [History] Omeprazole 20 mg PO DAILY 08/18/24 [History] allopurinoL [Zyloprim] 300 mg PO DAILY 08/18/24 [History] buPROPion XL [Wellbutrin XL] 300 mg PO DAILY 08/18/24 [History] metFORMIN HCL ER [Glucophage XR] 1,000 mg PO DAILY 08/18/24 [History] Aspirin 81 mg PO DAILY #30 tab 08/21/24 [Rx] Atorvastatin [Lipitor] 40 mg PO HS #30 tab 08/21/24 [Rx] Isosorbide Mononitrate ER [Imdur] 30 mg PO DAILY #30 tab 08/21/24 [Rx] Valsartan [Diovan] 80 mg PO BID #60 tab 08/21/24 [Rx] Follow up Appointment(s)/Referral(s): Navdeep Hernandez MD [STAFF PHYSICIAN] - 1 Week (Office will call patient with appointment ) Cindy Beverly MD [Primary Care Provider] - 1-2 days Britney Castorena MD [STAFF PHYSICIAN] - 1 Week [facility] [place], [place] [NON-STAFF] - 1 Week Patient Instructions/Handouts: *Surgery [facility] - After Heart Catheterization - [place] Instructions Activity/Diet/Wound Care/Special Instructions: OK to resume metformin on Wednesday Discharge Disposition: HOME SELF-CARE
== END 2024-08-21 17:35 | disposition home or self-care (01) ==
LOC: EC 13:21 → 6NMEDSUR 15:50
PROVIDERS: ADMIT Hospitalist; ATTEND Hospitalist
DX: R94.39 Abnormal result of other cardiovascular function study (principal); I20.9 Angina pectoris, unspecified; E11.65 Type 2 diabetes mellitus with hyperglycemia; R94.31 Abnormal electrocardiogram [ECG] [EKG]; J45.991 Cough variant asthma; I10 Essential (primary) hypertension; E78.5 Hyperlipidemia, unspecified; G47.30 Sleep apnea, unspecified; E03.9 Hypothyroidism, unspecified; F32.A Depression, unspecified; E66.9 Obesity, unspecified; Z68.43 Body mass index [BMI] 50.0-59.9, adult; D72.829 Elevated white blood cell count, unspecified; Z79.84 Long term (current) use of oral hypoglycemic drugs; Z79.890 Hormone replacement therapy; Z79.899 Other long term (current) drug therapy; Z88.0 Allergy status to penicillin; Z88.1 Allergy status to other antibiotic agents
CPT/HCPCS: 96365; 96366; 99285; 36415; 94660 ×2; 93005; 93458; 80061 ×2; 80053; 80048; 84443; 83735; 84484; 85025 ×2; 85610; 85730; 83036 ×2; 71046; G0378 ×4; C8929; J2250; J1644 ×3; J2003; J3010; Q9957; J3475; Q9967; 93306

== ENCOUNTER → 2025-02-26 | Outpatient (CLI) | payer MEDICARE, OTHER ==
--- NOTE | 2025-03-06 00:04 | P.PCN ---
Date of Procedure: 02/26/25 Operative Findings: Home sleep study report Date of service is 02/26/2025 History This is a 54-year-old female patient who presents to the office due to concerns of sleep apnea. The patient is known to have obstructive sleep apnea. The patient has been diagnosed having moderate obstructive sleep apnea based on a home sleep study that was done back in October 2021. At that time, the patient's AHI was 16. The patient is currently being treated with a CPAP pressure of 12 cm of water. She has lost around 60 pounds in weight and the patient's BMI dropped down to 50. She was interested in updating her CPAP unit. Her machine was old and the machine exceeded its motor life span. Based on that, a home sleep study was ordered to reestablish diagnosis and decide if ongoing CPAP therapy is needed. Pertinent physical findings The patient's body mass index of 50, current weight is 310 pounds Technical description The [employer] ApneaLink system was used to complete his home sleep study. This is a type III home sleep study evaluation. The total recording duration was 11 hours and 18 minutes. The study started 9:17 PM and it ended at 8:36 AM. There was a total of 11 hours and 5 minutes of flow monitoring and 11 hours and 3 minutes of oxygen saturation monitoring Results Respiratory analysis showed a total of 127 obstructive apneas, no obstructive hypopneas. The resulting AHI was 11.4. Oxygenation analysis The baseline pulse ox while awake was 94%, average pulse ox during sleep was 91% and the minimum pulse ox was 81% and the patient spent approximately 22 minutes of the sleep time below pulse ox of 89% Cardiac summary Average heart rate was 82 with a minimum heart rate of 68 and a maximum heart rate 177 Assessment Obstructive sleep apnea, mild in severity with an AHI of 12. The patient has lost considerable mount of weight and the patient continues to have obstructive sleep apnea although the severity of her illness has improved slightly. She continues to have nocturnal oxygen desaturations. Obesity with a BMI of 50 Depression Hypertension Hypothyroidism PTSD Diabetes mellitus Chronic anxiety Gout Plan Will plan to continue CPAP therapy. Will keep the patient on the same pressure of 12 cm of water. Will offer the patient the appropriate mask interface and fo r now, the patient is using the AirFit N20 large size nasal mask. Encouraged further weight loss Maintain good sleep hygiene measures Maintain regular schedule Optimize comorbidities Seen back in the office in 30 to 90 days after obtaining the new CPAP machine for a compliancy check.
== END ==
LOC: 3 N SLEEP 12:57
PROVIDERS: ATTEND Internal Medicine Critical Care Medicine
DX: G47.33 Obstructive sleep apnea (adult) (pediatric) (principal); I10 Essential (primary) hypertension; F32.A Depression, unspecified; E03.9 Hypothyroidism, unspecified; F43.10 Post-traumatic stress disorder, unspecified; E11.9 Type 2 diabetes mellitus without complications; F41.9 Anxiety disorder, unspecified; M10.9 Gout, unspecified; Z99.89 Dependence on other enabling machines and devices; Z88.0 Allergy status to penicillin; Z88.1 Allergy status to other antibiotic agents